=== PATIENT | female | born 1945 | race Caucasian/White ===

== ENCOUNTER 2019-03-21 18:48 | Inpatient (IN) ==
[2019-03-21] MEDS ORDERED: ZOFRAN IV ONE (19:52)
[2019-03-21] MEDS ORDERED: NS 1,000 ML IV ONE (19:52)
[2019-03-21 20:27] LABS: BASO# 0.01 X1000 (0.0-0.2); HEMATOCRIT 32.8 % (37.0-47.0); HEMOGLOBIN 10.4 g/dL (12.0-16.0); IMM GRAN% 0.4 % (0.0-0.5); LYMPH# 2.02 X1000 (1.2-3.4); LYMPH% 8.6 % (20.5-51.1); MCH 28.3 PG (27-31); MCHC 31.7 g/dL (33-37); MCV 89.1 FL (81-99); MONO# 1.46 X1000 (0.11-0.59); MONO% 6.2 % (1.7-9.3); MPV 9.4 FL (7.4-10.4); NEUT# 19.85 X1000 (1.4-6.5); NEUT% 84.8 % (42.2-75.2); PLT 344 X1000 (130-400); RBC 3.68 XMIL (4.2-5.4); RDW 12.8 % (11.5-14.5); WBC 23.44 X1000 (4.8-10.8)
[2019-03-21 20:36] LABS: AGAP 17; ALBUMIN 3.6 g/dL (3.5-5.0); ALKALINE PHOSPHATASE 82 U/L (32-104); BUN 37 mg/dL (8-22); CHLORIDE 98 mmol/L (98-107); COSMO 290; CREATININE 0.9 mg/dL (0.5-0.9); ESTIMATED GFR > 60; GLUCOSE 265 mg/dL (70-104); GOT 16 U/L (10-30); GPT 15 U/L (10-36); LIPASE 25 U/L (13-60); POTASSIUM 3.3 mmol/L (3.5-5.1); SODIUM 136 mmol/L (136-145); TCO2 22 mmol/L (25-35); TOTAL PROTEIN 6.8 g/dL (6.3-8.3)
[2019-03-21 20:45] LABS: BANDS 2 % (0-1); LYMPHS 10 % (21-51); MONO 1 % (1-9); SEGS 87 % (42-75)
[2019-03-21 20:46] LABS: HYPOCHROM 1+
[2019-03-21] MEDS ORDERED: LEVAQUIN 500 MG/D5W 500 MG/100 ML IVPB IV ONE (20:57)
--- NOTE | 2019-03-21 21:29 | Diag Imaging Result Doc PS360 ---
EXAM: CHEST-1 VIEW - 03/21/2019 HISTORY: leukocytosis TECHNIQUE: One view chest COMPARISON: 03/19/2019 FINDINGS: The projection is somewhat lordotic. Heart size appears upper normal. The lungs appear grossly clear of acute changes. There is no substantial pleural effusion or pneumothorax identified. IMPRESSION: No discrete evidence of acute disease. Electronically signed by Tayo Mayorga 03/21/2019 9:26 PM
--- NOTE | 2019-03-21 21:55 | Diag Imaging Result Doc PS360 ---
EXAM: CT ABD/PELVIS W/IV CONT ONLY - 03/21/2019 HISTORY: colitis, gi bleeding TECHNIQUE: CT abdomen/pelvis with intravenous contrast COMPARISON: None. FINDINGS: There is a large intermediate density subcapsular collection at the left kidney which is suspicious for subcapsular hematoma. At the mid to lower left kidney, this extends medially to the parapelvic region. There is some lower density material in this area, and it is is conceivable this could represent an unusual hemorrhagic cyst. There is no discrete enhancing mass identified. The left renal parenchyma otherwise enhances homogeneously. The right kidney enhances homogeneously except for a 2.1 cm cyst. There is no hydronephrosis. There is fatty infiltration of the liver. There is no evidence of focal liver lesion. There are no substantial abnormalities of the spleen, adrenal glands, or pancreas identified. There are no calcified gallstones or pericholecystic inflammation seen. There is no evidence of bowel obstruction. There is no substantial bowel wall thickening identified. There is no free air or abscess identified. IMPRESSION: Large subcapsular hematoma at left kidney. Possible underlying low-density lesion at mid to lower left kidney which conceivably could represent an unusual hemorrhagic cyst. There is extension of hemorrhage into the perinephric region. This report was discussed with Dr. Rutherford on 03/21/2019 at 9:50 PM and was readback. This exam was performed using automated exposure control, adjustment of mA or kV according to patient size, and/or use of iterative reconstruction technique. Electronically signed by Tayo Mayorga 03/21/2019 9:53 PM
[2019-03-21 22:09] LABS: INR 0.95; PROTIME 13.1 Seconds (11.0-16.0); PTT 22.5 Seconds (22.3-41.8)
[2019-03-21 22:19] LABS: URINE SOURCE CLEAN CATCH
[2019-03-21 22:22] LABS: BILIRUBIN URINE NEGATIVE (NEGATIVE); BLOOD URINE SMALL (NEGATIVE); COLOR YELLOW; GLUCOSE URINE 150 mg/dL (NEGATIVE); KETONE URINE NEGATIVE (NEGATIVE); LEUKOCYTES URINE NEGATIVE (NEGATIVE); NITRITE URINE NEGATIVE (NEGATIVE); PROTEIN URINE 70 mg/dL (NEGATIVE); TURBIDITY URINE CLEAR (CLEAR); UROBILINOGEN URINE NORMAL (NORMAL)
[2019-03-21 22:23] LABS: UR EPITHELIAL CELLS >10 /HPF (<10); URINE BACTERIA NEGATIVE /HPF; URINE RBC <10 /HPF (<10); URINE WBC <10 /HPF (<10)
--- NOTE | 2019-03-21 22:25 | PROVIDER DOCUMENTATION ---
This chart was entered by Paola Guadarrama Scribe, acting as scribe for Arnulfo Rutherford MD. HPI-Abdominal Pain/GI Problem - General Chief Complaint: Abdominal Pain Stated Complaint: ABD PAIN/VOMITING Time Seen by Provider: 03/21/19 19:20 Source: patient Allergies/Adverse Reactions: Patient Allergies Allergy/AdvReac Type Severity Reaction Status Date / Time Penicillins Allergy RASH Verified 01/12/15 11:12 Sulfa (Sulfonamide Allergy Unknown Verified 03/21/19 20:13 Antibiotics) venom-honey bee Allergy ANAPHYLAXIS Verified 01/12/15 11:12 [bee venom (honey bee)] Home Medications: Home Medication List Medication Instructions Recorded Confirmed Last Taken Type Alprazolam [Xanax] 0.25 mg TID 05/28/14 05/28/14 05/28/14 History Nebivolol HCl [Bystolic] 10 mg 05/28/14 05/28/14 05/27/14 History SIMVAstatin [Zocor] 40 mg 05/28/14 05/28/14 05/27/14 History Chlorthalidone 25 mg PO DAILY 03/21/19 03/21/19 Unknown History Irbesartan 300 mg PO DAILY 03/21/19 03/21/19 Unknown History - History of Present Illness-ABD Nature of Presenting Problems: pt is a 74 yr old female presenting with compliant of left abdominal pain, nausea, vomiting. pt reports blood streaked mucous in vomit. pt denies any constipation or diarrhea. pt reports dx as bronchitis 2 days ago. currently on azithromycin and prednisone. Abdominal Pain Onset Location: reports: LUQ, LLQ Pain Radiation: reports: flank Quality of Pain: reports: cramping, sharp Severity in ED: reports: moderate Onset/Duration: reports: this afternoon Timing: reports: still present Activities at Onset: reports: light activity Exposure to sick contacts?: No Modifying Factors: improves with: nothing Associated Symptoms: reports: diaphoresis, nausea, vomiting. denies: back/neck pain, chest pain, constipation, diarrhea, fever/chills, genitourinary problems, shortness of breath Last BM: this morning (x2) Dark Stools Present?: reports: none noticed Rectal Bleeding: reports: none # of Diarrhea Episodes: 0 Rectal Pain: reports: none # of Vomiting Episodes: 10 (10+) Emesis Description: reports: blood-streaked (brown blood streaked mucous in emesis) Bruising or Bleeding Gums?: No Similar Symptoms Previously?: No Recently seen or treated by another doctor?: Yes (seen in ER 2 days aog, dx as bronchitis) Review of Systems - Adult - REVIEW OF SYSTEMS - ADULT Constitutional: reports: chills, fatique. denies: fever Eyes: reports: no symptoms reported Ears, Nose, Mouth & Throat: reports: no symptoms reported Cardiovascular: denies: chest pain, palpitations, syncope Respiratory: reports: cough. denies: shortness of breath Gastrointestinal: reports: abdominal pain, hematemesis, nausea, vomiting. denies: constipation, diarrhea, rectal bleeding Genitourinary: reports: flank pain. denies: dysuria, frequency, hematuria Musculoskeletal: denies: back pain, neck pain Integumentary: reports: no symptoms reported Neurological: denies: dizziness/vertigo, headache/migraines Psychiatric: reports: anxiety Endocrine: reports: no symptoms reported Hematologic/Lymphatic: reports: no symptoms reported Allergic/Immunologic: reports: no symptoms reported All Other Systems: Reviewed and Negative Past History - Adult - PAST MEDICAL HISTORY-ADULT Review of Records: reports: Old Records Reviewed, Nursing Assessment Review, Medications Reviewed, Social history reviewed & non-contributory. Major Childhood Illnesses: reports: denies history Cardiovascular: reports: HTN, hyperlipidemia Respiratory: reports: denies history Gastrointestinal: reports: denies history Obstetrical/Gynecological: reports: denies history Genitourinary: reports: denies history Musculoskeletal: reports: denies history Neurological: reports: denies history Psychiatric: reports: anxiety Endocrine/Immune: reports: denies history Other Conditions: reports: other cancer - PRIOR SURGERIES/PROCEDURES Surgical/Procedure History: reports: BTL, other - IMMUNIZATION STATUS Childhood Immunizations: See Nurse Assessment Flu Vaccine: See Nurse Assessment - FAMILY HISTORY Family History: reviewed, not pertinent - SOCIAL HISTORY Smoking: denies Substance Use: denies Living Situation: family Physical Exam-General - PHYSICAL EXAM-ADULT Initial Vital Signs Reviewed: Yes - CONSTITUTIONAL General Appearance: alert, no apparent distress - EYES Eyes: PERRL/EOMI - HEAD, EARS, NOSE, MOUTH & THROAT HENMT: negative: moist mucous membranes (dry oral mucousa) - NECK Neck: non-tender, full range of motion, supple, normal inspection - RESPIRATORY Respiratory: chest non-tender, wheezing (bilateral wheezing), increased rate - CARDIOVASCULAR Cardiovascular: normal peripheral pulses, regular rate, rhythm, no edema - GASTROINTESTINAL (ABDOMEN) Abdominal Exam: normal bowel sounds, soft, distended, tenderness (LUQ, LLQ, left flank tenderness) - LYMPHATIC Lymphatic: no adenopathy - MUSCULOSKELETAL Back Exam: no CVA tenderness, no vertebral tenderness Extremity: normal range of motion, non-tender, normal inspection - SKIN Integumentary: normal color, normal turgor, warm/dry - NEUROLOGIC Neurologic: grossly normal, no motor/sensory deficits - PSYCHIATRIC Psych/Mental Status: oriented x 3, anxious Progress - PLAN OF CARE/RESULTS Progress/Plan/Lab Results: Vital Signs - 8 hr 03/21/19 19:01 Temperature 97.6 F Pulse Rate 70 Respiratory Rate 25 H Blood Pressure 123/69 O2 Sat by Pulse Oximetry 94 L Orders Category Date Time Status NPO Diet 03/21/19 19:14 Active CBC WITH DIFF [HEME] Stat Lab 03/21/19 19:14 Uncollected COMPREHENSIVE METABOLIC PANEL [CHEM] Stat Lab 03/21/19 19:14 Uncollected LIPASE [CHEM] Stat Lab 03/21/19 19:14 Uncollected UA [URINALYSIS W/POSS RFLX CULT] [URINALYSIS] Stat Lab 03/21/19 19:14 Uncollected Abd Pain/OB <20 weeks Stat Oth 03/21/19 19:14 Ordered Result Diagrams: 03/21/19 20:06 03/21/19 20:06 - XRAY 1 XRAY Study: Chest Impression: Normal (Signed EXAM: CHEST-1 VIEW - 03/21/2019 HISTORY: leukocytosis TECHNIQUE: One view chest COMPARISON: 03/19/2019 FINDINGS: The projection is somewhat lordotic. Heart size appears upper normal. The lungs appear grossly clear of acute changes. There is no substantial pleural effusion or pneumothorax identified. IMPRESSION: No discrete evidence of acute disease. Electronically signed by Tayo Mayorga 03/21/2019 9:26 PM 03/[id number]/[id number] Interpreting Physician: Tayo Mayorga MD Dictated Date/Time: 03/21/192123 cc: Arnulfo Rutherford MD; Slava Lindsey MD) - CT/MRI 1 CT Study: Abdomen, Pelvis Impression: Abnormal (Signed EXAM: CT ABD/PELVIS W/IV CONT ONLY - 2018 HISTORY: colitis, gi bleeding TECHNIQUE: CT abdomen/pelvis with intravenous contrast COMPARISON: None. FINDINGS: There is a large intermediate density subcapsular collection at the left kidney which is suspicious for subcapsular hematoma. At the mid to lower left kidney, this extends medially to the parapelvic region. There is some lower density material in this area, and it is is conceivable this could represent an unusual hemorrhagic cyst. There is no discrete enhancing mass identified. The left renal parenchyma otherwise enhances homogeneously. The right kidney enhances homogen eously except for a 2.1 cm cyst. There is no hydronephrosis. There is fatty infiltration of the liver. There is no evidence of focal liver lesion. There are no substantial abnormalities of the spleen, adrenal glands, or pancreas identified. There are no calcified gallstones or pericholecystic inflammation seen. There is no evidence of bowel obstruction. There is no substantial bowel wall thickening identified. There is no free air or abscess identified. IMPRESSION: Large subcapsular hematoma at left kidney. Possible underlying low- density lesion at mid to lower left kidney which conceivably could represent an unusual hemorrhagic cyst. There is extension of hemorrhage into the perinephric region. This report was discussed with Dr. Rutherford on 03/21/2019 at 9:50 PM and was readback. This exam was performed using automated exposure control, adjustment of mA or kV according to patient size, and/or use of iterative reconstruction technique. Electronically signed by Tayo Mayorga 03/21/2019 9:53 PM 03/21/[id number] Interpreting Physician: Tayo Mayorga MD Dictated Date/Time: 03/21/192133 cc: Arnulfo Rutherford MD; Slava Lindsey MD), Discussed w/Radiology, See EMR Report - CONSULTS/PCP/HOSPITALIST Notification #1 *Consult/PCP/Hospitalist*: Dr Bolanos Time Discussed: :19 Reason/Comments: advised hospitalist to admit and he would consult. #2 Consult: Dr Jain Time Discussed: 22:22 Reason/Comments: will admit to [facility] Consult Disposition: Admit Departure - Departure Date of Disposition Decision: 03/21/19 Time of Disposition Decision: 22:22 DIAGNOSIS: GI bleeding, Hemorrhage of cyst of ute kidney, Abdominal pain of unknown etiology, Sepsis Disposition: ADMITTED INPATIENT 09 Certified Medical Emergency: Emergent Condition: Serious Referrals and Follow-Ups: Slava Lindsey MD [Primary Care Provider] - - Critical Care Note This patient required my direct & personal management of CC.: No Attestation - Physician/ JONAS Attestation Patient care was provided by Advanced Practice Provider:: No The physician spent face to face time with patient:: Yes Advanced Practice Provider documentation review:: Supervising physician onsite and consulted in the evaluation and care of this patient. The physician did have a face to face encounter with the patient. Sepsis: Tissue Perfusion Assmt - Physical Exam Assessment Date: 03/21/19 Time Assessment Initialized: 22:26 Vital Signs: Last Vital Signs Temp 97.6 F 03/21/19 19:01 Pulse 64 03/21/19 21:45 Resp 22 03/21/19 21:45 BP 174/103 03/21/19 21:45 Pulse Ox 93 L 03/21/19 21:45 Height 5 ft 5 in Weight 907.185 g Lung Sounds:: lungs clear Heart Sounds:: Regular Capillary Refill Time: Less Than 2 Seconds Peripheral Pulse Evaluation:: radial (R): 4+, radial (L): 4+, dorsalis-pedis (R): 4+, dorsalis-pedis (L): 4+ Skin Exam:: flushed - Impression Impression:: Tissue Perfusion Adequate - Plan Plan:: See Orders This chart was documented by the indicated scribe, (Paola Guadarrama, [employer]) and accurately reflects the services I performed and decisions made by me, Ally duncan,Arnulfo Mcnair MD, as attested by the provider's signature.
[2019-03-21] MEDS ORDERED: LABETALOL IV ONE (22:28)
[2019-03-21 22:36] LABS: SP GRAVITY URINE 1.015
[2019-03-21] MEDS ORDERED: ZOFRAN IV PRN (23:07)
[2019-03-22] MEDS ORDERED: NS 1,000 ML IV SCH (00:30)
[2019-03-22] MEDS ORDERED: NS 1,000 ML IV ONE (00:31)
[2019-03-22] MEDS: APRESOLINE IV PRN (00:42)
[2019-03-22] MEDS: DILAUDID IV PRN ×5 (00:43→23:25)
--- NOTE | 2019-03-22 03:47 | EKG Report ---
Test Performed on : 03/22/2019 00:39:39 AM Test Reason : surgical clearance Blood Pressure : / mmHG Vent. Rate : 072 BPM Atrial Rate : 072 BPM P-R Int : 140 ms QRS Dur : 074 ms QT Int : 408 ms P-R-T Axes : 009 -08 035 degrees QTc Int : 446 ms Normal sinus rhythm. T wave abnormality, consider anterior ischemia Abnormal ECG When compared with ECG of 19-NOV-2011 15:31, No significant change was found Confirmed by Luis Alfredo RON, Dimitri ([id number]) on 03/22/2019 8:39:08 AM
[2019-03-22] MEDS ORDERED: PRILOSEC PO SCH (07:00)
[2019-03-22] MEDS ORDERED: KLOR-CON PO ONE (07:10)
[2019-03-22] MEDS: NS 1,000 ML IV SCH ×5 (07:42→23:26)
[2019-03-22 08:14] LABS: HEMATOCRIT 29.9 % (37.0-47.0); HEMOGLOBIN 9.7 g/dL (12.0-16.0)
[2019-03-22] MEDS: PROTONIX IV SCH (08:40)
[2019-03-22] MEDS: XANAX PO SCH ×4 (08:41→20:48)
[2019-03-22] MEDS: BYSTOLIC PO SCH (08:42)
[2019-03-22] MEDS: HYGROTON PO SCH (08:46)
[2019-03-22] MEDS: AVAPRO PO SCH ×3 (08:46→21:04)
[2019-03-22] MEDS: ZOCOR PO SCH ×2 (08:47→20:55)
--- NOTE | 2019-03-22 11:57 | HISTORY AND PHYSICAL ---
CHIEF COMPLAINT: Nausea with vomiting for about 2 days. HISTORY OF PRESENT ILLNESS: Ms. Ling Ortega is a 72-year-old female who has a history of hypertension as well as hyperlipidemia. The patient did have a recent upper respiratory infection, and she was prescribed antibiotics, and following, that she developed nausea with vomiting. The patient also indicates that she has vomited some dark, altered blood. She also describes having pain in her left flank region. She presented to the ER. She did have a CT scan of the abdomen and pelvis, which showed evidence of a large subcapsular hematoma of the left kidney. There is extension of hemorrhage into the perinephric region. The patient initially presented to [facility], but has now been transferred to [facility] for further management. PAST MEDICAL HISTORY: Hypertension, hyperlipidemia, recurrent upper respiratory infection, history of breast cancer. PAST SURGICAL HISTORY: She has had lumpectomy, bilateral tubal ligation, as well as oral surgery, and also cataract surgery. SOCIAL HISTORY: No history of cigarette smoking. No alcohol or drug use. FAMILY HISTORY: Positive for diabetes as well as cancer. ALLERGIES: She is allergic to penicillin and sulfa. MEDICATIONS: Include the following: Alprazolam 0.25 mg p.o. 3 times a day, Bystolic 10 mg p.o. daily, simvastatin 40 mg p.o. daily, chlorthalidone 25 mg p.o. once a day, irbesartan 300 mg p.o. daily. REVIEW OF SYSTEMS: Constitutional: Has fever. GARBAGE STOKER: No headaches. Eyes: No blurred vision. Cardiovascular: No chest pain. Respiratory: Has cough. Genitourinary: No dysuria. Musculoskeletal: Has joint pains. Hematology: Has hematemesis as in the history of present illness. Endocrine: No thyroid disease or diabetes. Psychiatry: Has anxiety with depression. PHYSICAL EXAMINATION: VITAL SIGNS: Temperature 98.9 degrees, pulse 85, respirations 24, blood pressure 138/82, oxygen saturation is 94%. HEENT: Atraumatic, normocephalic. She is anicteric. Extraocular movements intact. No oral lesions. NECK: No lymphadenopathy or thyromegaly. CARDIOVASCULAR: S1, S2. RESPIRATORY: Has evidence of good air entry bilaterally. ABDOMEN: Soft, nontender. No masses felt. EXTREMITIES: No evidence of edema. CENTRAL NERVOUS SYSTEM: No obvious focal deficits. IMAGING AND LABORATORY DATA: WBCs 23.44, hematocrit 32.8, with a platelet count of 344,000. INR is 0.95. Sodium is 136, potassium 3.3, chloride is 98, bicarb is 22, BUN is 37, creatinine 0.9. UA shows less than 10 WBCs per high-power field. CT scan of the abdomen and pelvis shows evidence of a large subcapsular hematoma at the left kidney, possible underlying low- density lesion at the [id number] left kidney, which conceivably could represent an unusual hemorrhagic cyst. There is extension of hemorrhage into the perinephric region. ASSESSMENT AND PLAN: 1. Upper gastrointestinal bleed. Will place the patient nothing by mouth. Maintain the patient on intravenous fluids. Start proton pump inhibitor. Follow up on hemoglobin and hematocrit. Transfuse packed red blood cells as needed. Consult with Gastroenterology. 2. Large subcapsular hematoma of the left kidney. Consult with Urology. Follow up on hemoglobin and hematocrit. Transfuse packed red blood cells as needed. 3. Sepsis. Maintain the patient on antibiotics, intravenous fluids. Follow up on cultures. 4. Leukocytosis, likely secondary to infective process. Maintain the patient on antibiotics. Follow up on white count. 5. Hypertension. Optimize blood pressure control. 6. Hypokalemia. Replace potassium. Check magnesium level. 7. Deep vein thrombosis prophylaxis. Sequential compression devices. 8. Gastrointestinal prophylaxis. Proton pump inhibitor. cc: Nilton Jain MD MTD
[2019-03-22 12:58] LABS: HEMATOCRIT 28.6 % (37.0-47.0); MCH 28.5 PG (27-31); MCHC 31.5 g/dL (33-37); MCV 90.5 FL (81-99); MPV 9.1 FL (7.4-10.4); RBC 3.16 XMIL (4.2-5.4); WBC 14.62 X1000 (4.8-10.8)
--- NOTE | 2019-03-22 14:15 | PROGRESS NOTE ---
DATE: 03/22/2019 SUBJECTIVE: Today Ms. Ortega refers to be doing slightly better. Still has some pain in the left side. Ms. Ortega got admitted yesterday because of excruciating left-sided abdominal pain associated with multiple episodes of vomiting, after which the vomiting became bloody. Presented to the emergency department, was evaluated including a CT scan of the abdomen, which did show a large subcapsular hematoma on the left with some extension of the hemorrhage into the perinephric region. She has been evaluated this morning by Urology. OBJECTIVE: Vital signs: Blood pressure is 140/92, pulse of 90, respirations 24 and temperature is 98.9 degrees. General exam: Ms. Ortega is a 74-year-old elderly female. She is in bed in no distress. HEENT: Mucosa is pink and moist. Anicteric. Acyanotic. Neck: Supple. Chest: Good air entry bilateral. Did not hear any crepitations. No rhonchi. Cardiovascular: Regular rate and rhythm. GI/Abdomen: Soft. Some tenderness to the left flank with some erythematous changes on the skin. Central nervous system: Patient was awake, alert, and oriented. LABS: Repeat hemoglobin this morning is 9.7. Chemistry has also been reviewed from yesterday. The patient's lactate is now 3.1. So far, blood cultures are still pending. ASSESSMENT: 1. Spontaneous large subcapsular hematoma at the left kidney with extension to the perinephric region of unclear etiology. The patient has been evaluated by Urology. We will continue to follow up with further recommendations for now. We are going to continue with serial hemoglobin and hematocrit, adequate hydration. Urine cultures have been done. Patient is on intravenous antibiotics. 2. Sepsis picture. Patient has leukocytosis. Plasma lactate was also elevated on admission. There is about 2% of bands on the peripheral smear. Blood cultures are pending. Urine culture has been done. She is on antimicrobial coverage. We will wait on the results of the cultures to make any changes to the antibiotic. 3. Hypertension. 4. Recently treated for a respiratory tract infection. 5. Remote history of breast cancer. PLAN: So, today Ms. Ortega is stable hemodynamically. Vitals are okay. She has been evaluated by Urology. The plan is to continue serial hemoglobin and hematocrit, adequate hydration and get a repeat CT scan every /Wednesday, and go from there. If she happens to be dropping her hematocrit on the subsequent readings, then they might have to go in and do something differently. For now, it is going to be a conservative management. cc: MD Nilton Payne MD
--- NOTE | 2019-03-22 14:23 | CONSULTATION ---
DATE OF CONSULTATION: 03/22/2019 CHIEF COMPLAINT: Left retroperitoneal hematoma. HISTORY OF PRESENT ILLNESS: Ms. Ortega is a 74-year-old with history of hypertension, anxiety, breast cancer, hyperlipidemia, nephrolithiasis, who presents in consultation regarding left flank pain. The patient states that she was driving to the gas station and developed significant left flank pain. She was able to get gas and felt better, and then ultimately she had another episode of pain when she got home. She never felt like this before, and was brought to the emergency room. She was complaining of nausea and vomiting, as well as left-sided flank and abdominal pain. She said when she vomited, she noticed some blood present. She was recently seen in the emergency room and treated with steroids and azithromycin for possible bronchitis. The patient states she had a possible episode of flank pain on the left side approximately a week ago. She thought this may be related to passing a kidney stone. She has passed several stones in the past. However, she never felt a stone that passed. She currently denies any nausea or vomiting. The patient had a CT scan in the emergency room, which showed a left retroperitoneal hematoma with concern for possible masslike area within the interpolar region of the kidney. She remains afebrile. Her blood work showed a stable creatinine at 0.9, with a white blood cell count of 23. She had a lactate of 5.7 on admission, which has down trended to 3.1 today. The patient was admitted to the ICU for observation and serial hematocrits. ALLERGIES: 1. Penicillin. 2. Sulfamethoxazole. 3. Bee venom. HOME MEDICATIONS: 1. Xanax. 2. Bystolic. 3. Zocor. 4. Irbesartan. 5. Chlorthalidone. PAST MEDICAL HISTORY: 1. Anxiety. 2. Hypertension. 3. Hyperlipidemia. 4. Breast cancer. 5. Nephrolithiasis. PAST SURGICAL HISTORY: 1. Lumpectomy approximately 11 years ago. 2. Tubal ligation. FAMILY HISTORY: Denies family history of malignancy. SOCIAL HISTORY: Denies tobacco, alcohol, or illicit drug use. REVIEW OF SYSTEMS: A 14-point review of systems was performed with all pertinent positives and negatives in the HPI. PHYSICAL EXAMINATION: Vital Signs: Temperature 98.9 degrees, heart rate 88, blood pressure 134/73, oxygen saturation 97% on room air. General: No acute distress. Resting comfortably in bed. Alert and oriented x3. HEENT: Normocephalic, atraumatic. Pupils equal, round, reactive to light. Neck: Trachea midline with no palpable masses. Respiratory: Good respiratory effort without audible wheezing or rales. Cardiovascular: Regular rate and rhythm. Abdomen: Soft. Slight tenderness to palpation of the left abdomen and left flank. : No suprapubic tenderness. Urethral catheter in place, draining clear-yellow urine. Evidence of mild left CVA tenderness. No evidence of right CVA tenderness. Musculoskeletal: Moving all extremities. Neurologic: Gross motor and sensory intact. Skin: No skin lesions or rashes. No flank bruising present. LABORATORY DATA: White blood cell count 23.4, hemoglobin 10.4, hematocrit 32.8, platelets 344,000. PT 13.1, INR 0.95, PTT 22.5. Sodium 136, potassium 3.3, chloride 98, bicarb 22, BUN 37, creatinine 0.9, glucose 265. Lactate 3.1. Urinalysis shows a small amount of blood with 70 of protein and 150 of glucose. IMAGING: CT abdomen and pelvis images reviewed, which showed a large hematoma of the left kidney with what appears to be a lesion present in the [id number] pole of the kidney. Uncertain if this is a cystic structure versus solid mass. A small cyst is seen in the right kidney. No obvious nephrolithiasis is visualized. No obvious area of extravasation from the left kidney. ASSESSMENT AND PLAN: Ms. Ortega is a 74-year-old who presents for left flank pain. The patient had a CT scan in the emergency room, which showed a subcapsular hematoma, which was moderate-to- large in size. It seemed to create a compression effect on the kidney, and likely leading to her pain. The patient had a lactate elevated at 5.7, which has down trended to 3.1 today. White blood cell count was elevated at 23.4 on admission, with a hematocrit of 32.8. Uncertain if her white blood cell count is both from the inflammatory nature of her bleed, as well as being on prednisone. She took this for several days prior to presenting. The patient is a nonsmoker. Concerns arise that the patient may have a mass on the kidney, which led to her spontaneous bleed. Would observe in the intensive care unit with serial hematocrits and hemoglobins at this time. The patient will need close monitoring for any hemodynamic changes. I discussed the case with Dr. Jain last night. If the patient becomes unstable, may have to consider embolization of the kidney if continues to have serial bleeds, versus surgical exploration. Discussed with the patient that if she did have surgical intervention, the patient would likely have her kidney removed due to bleeding and concern for possible mass. I told her that we likely would repeat a CT scan in 48 hours to ensure stability of the area. If it continues to worsen, may have to consider intervention. If the area remains stable and hematocrit remains stable, would plan for outpatient followup with repeat imaging in several months, and likely surgical intervention if a mass is visualized. If the patient continues to have sporadic bleeds, may have to consider earlier intervention. Will continue to monitor from a urologic standpoint. Please call with questions or concerns. cc: MD Nilton Gonzales MD [facility]
[2019-03-22] MEDS: LEVAQUIN 500 MG/D5W 500 MG/100 ML IVPB IV SCH (17:49)
[2019-03-22 20:20] LABS: HEMATOCRIT 24.7 % (37.0-47.0)
--- NOTE | 2019-03-22 20:45 | GASTROENTEROLOGY CONSULTATION ---
DATE: 03/22/2019 REASON FOR CONSULTATION: Nausea, vomiting, hematemesis, anemia. HISTORY OF PRESENT ILLNESS: This is a 74-year-old female who reports onset of symptoms yesterday. Patient owns a hair salon and when the weather became bad, she decided to go to her salon and get her client book in case she had to cancel appointments tomorrow. Patient was out of gas, so she was on her way to get some gas when she had an episode of where she felt like she may pass out. She made it to the gas station and to her salon to get her client book and made it back home. Her symptoms had seemed to improve, but after she got home she felt nauseated and felt like she may vomit. She ended up taking one of her Xanax that she takes at night, but she continued to have episodes of nausea. She reported diaphoresis and hematemesis. She had initial vomiting of about 5 times before she noted what she thought was brownish maroon emesis. She probably vomited about 12 times, per patient report. She came into the hospital for further evaluation, undergoing workup that showed a CT scan that showed large subcapsular hematoma at the left kidney, possible underlying low-density lesion at the mid to lower left kidney, which could represent an unusual hemorrhagic cyst. There is extension of hemorrhage into the perinephric region. Patient has been seen by Urology. As far as GI is concerned, the patient does report a history of gastric ulcers in the past, probably 20 years ago. She has denied NSAID use except for an occasional aspirin. She maybe took one 2 weeks ago. She takes an occasional aspirin for aches and pains, but not frequently. She denies alcohol use. She has never had an EGD or colonoscopy. She does not currently follow with a manager intranet. She did report having a recent upper respiratory infection/bronchitis and was on antibiotics and prednisone. PAST MEDICAL HISTORY: 1. Hypertension. 2. Hyperlipidemia. 3. Recurrent respiratory infections. 4. History of breast cancer. PAST SURGICAL HISTORY: 1. Lumpectomy. 2. Bilateral tubal ligation. 3. Oral surgery. 4. Cataract surgery. ALLERGIES: 1. Penicillin, causing a rash. 2. Sulfonamide, unknown reaction. 3. Bee venom, anaphylaxis. HOME MEDICATIONS: 1. Xanax 0.25 mg 3 times a day. 2. Chlorthalidone 25 mg daily. 3. Irbesartan 300 mg daily. 4. Bystolic 10 mg daily. 5. Zocor 40 mg daily. SOCIAL HISTORY: She is single. She has 1 child. She owns a hair salon. Denies tobacco or alcohol use. REVIEW OF SYSTEMS: Per History of Present Illness. PHYSICAL EXAMINATION: Vital Signs: Temperature 98.8 degrees, pulse 83, respirations 23, blood pressure 148/85. General: Patient is awake and alert, in no acute distress. HEENT: Normocephalic, atraumatic. Pupils equal, round, reactive to light. Sclerae nonicteric. Cardiovascular: Regular rate and rhythm. Respiratory: Lung sounds essentially clear. Abdomen: There is some tenderness to the left abdomen. Otherwise soft with positive bowel sounds. Neurological: Cranial nerves 2 through 12 grossly intact. Patient is awake, alert, oriented to person, place, and time. DIAGNOSTIC RESULTS: CT scan of the abdomen showed a large subcapsular hematoma at the left kidney with extension to the perinephric region. The patient has been seen by Urology. They will be following. Nausea, vomiting, with episodes of hematemesis, possibly related to Katelyn-Reza tear from her numerous episodes of vomiting. She is mildly anemic. Patient had also reported some problems with dysphagia to meats and breads where she feels like they get hung. She was wondering if she may have a hiatal hernia. She denies having an esophagogastroduodenoscopy or colonoscopy in the past. Due to her hematemesis, vomiting, and reports of dysphagia, we will go ahead and proceed with esophagogastroduodenoscopy. Plan will be to proceed with esophagogastroduodenoscopy on . Will hold n.p.o. after midnight. Will allow clear liquid diet today. Recommend continuing to follow with Urology. Further plans will be made as needed. I have discussed this case with Dr. Dixon. Dictated by JARED Zayas for Tha Dixon MD cc: JARED Magaña MD
[2019-03-23] MEDS: DILAUDID IV PRN ×3 (05:20→18:42)
[2019-03-23] MEDS: NS 1,000 ML IV SCH ×3 (06:20→22:53)
[2019-03-23] MEDS ORDERED: ROBINUL ONE (08:21)
[2019-03-23] MEDS ORDERED: VERSED ONE (08:22)
[2019-03-23] MEDS ORDERED: FENTANYL ONE (08:24)
[2019-03-23] MEDS ORDERED: DIPRIVAN 1% ONE (08:26)
[2019-03-23] MEDS ORDERED: XYLOCAINE-MPF 2% ONE (08:26)
[2019-03-23 08:47] LABS: EOS# 0.03 X1000 (0.0-0.7); EOS% 0.3 % (0.0-10.0); HEMATOCRIT 25.2 % (37.0-47.0); HEMOGLOBIN 7.9 g/dL (12.0-16.0); IMM GRAN# 0.08 X1000 (0.0-0.04); IMM GRAN% 0.7 % (0.0-0.5); LYMPH# 1.69 X1000 (1.2-3.4); LYMPH% 14.1 % (20.5-51.1); MCH 28.5 PG (27-31); MCHC 31.3 g/dL (33-37); MONO# 0.97 X1000 (0.11-0.59); MONO% 8.1 % (1.7-9.3); MPV 9.3 FL (7.4-10.4); NEUT# 9.21 X1000 (1.4-6.5); NEUT% 76.8 % (42.2-75.2); PLT 221 X1000 (130-400); RBC 2.77 XMIL (4.2-5.4); RDW 12.8 % (11.5-14.5); WBC 11.98 X1000 (4.8-10.8)
[2019-03-23 08:54] LABS: AGAP 10; BUN 23 mg/dL (8-22); CALCIUM 8.5 mg/dL (8.8-10.2); CHLORIDE 97 mmol/L (98-107); COSMO 273; CREATININE 0.8 mg/dL (0.5-0.9); ESTIMATED GFR > 60; GLUCOSE 147 mg/dL (70-104); PHOSPHORUS 2.6 mg/dL (2.7-4.5); POTASSIUM 3.5 mmol/L (3.5-5.1); SODIUM 133 mmol/L (136-145); TCO2 26 mmol/L (25-35)
--- NOTE | 2019-03-23 08:55 | ENDOSCOPY OPERATIVE NOTE ---
[facility] ENDOSCOPY OPERATIVE NOTE , EGD PROCEDURE REPORT PATIENT: Ling Ortega ADMISSION DATE: 03/23/2019 MR#: [id number] : 1945 PROCEDURE DATE: 03/23/2019 SURGEON: Tha Dixon MD STATUS: inpatient EXECUTIVE TALENT ACQUISITION CONSULTANT: Ailyn Santamaria and Raulito Das PREOPERATIVE DIAGNOSIS: The patient is a 74 yr old female here for an EGD due to acute post hemorrha gic anemia and coffee-ground emesis. PROCEDURE PERFORMED: EGD, diagnostic MEDICATIONS: Per Anesthesia TOPICAL ANESTHETIC: none CONSENT: The patient understands the risks and benefits of the procedure and understands that these r isks include, but are not limited to: sedation, allergic reaction, infection, perforation and/or bleeding. Alternative means of evaluation and treatment include, among others: physical exam, x-rays, and/or surgical intervention. The patient elects to proceed with this endoscopic procedure. HISORY AND PHYSICAL: 03/23/2019 DESCRIPTION OF PROCEDURE: During intra-op preparation period all mechanical and medical equipment was checked for proper function. Hand hygiene and appropriate measures for infection prevention was taken. After the risks, benefits and alternatives of the procedure were thoroughly explained, Informed consent was verified, confirmed and timeout was successfully executed by the treatment team. The patient was anesthetized with topical anesthesia and the Pentax EG-[id number] endoscope was introduced through the mouth and advanced to the second portion of the duodenu m. Retroflexion was performed in the stomach and revealed no abnormalities. The gastroscope was then slowly withdraw n and removed. ESOPHAGUS: Mild reflux esophagitis was found in the distal esophagus and at the gastroesophageal junc tion. The esophagus was otherwise normal. STOMACH: The mucosa of the stomach appeared normal. DUODENUM: The duodenal mucosa showed no abnormalities. SPECIMENS REMOVED: No ADVERSE EVENTS: There were no complications. POSTOPERATIVE DIAGNOSIS: 1. Reflux esophagitis in the distal esophagus and at the gastroesophage al junction 2. The esophagus was otherwise normal 3. The mucosa of the stomach appeared normal 4. The duodenal mucosa showed no abnormalities RECOMMENDATIONS: 1. Resume pre-procedure medications 2. Resume current medications 3. Resume previous diet 4. Return to floor when standard parameters are met REPEAT EXAM: Tha Dixon MD eSigned: Tha Dixon MD 03/23/2019 8:54 AM cc: PATIENT NAME: Ling Ortega MR#: [id number]
[2019-03-23 10:39] LABS: INR 1.11; PROTIME 14.4 Seconds (11.0-16.0)
--- NOTE | 2019-03-23 10:39 | PROGRESS NOTE ---
DATE: 03/23/2019 SUBJECTIVE: No acute events overnight. The patient's pain seems to be better controlled today. She denies any nausea or vomiting. She remains afebrile with stable vital signs. The patient has no evidence of tachycardia, and blood pressures are in the 120s to 140s. She says she has been able to move around in the bed with less discomfort. The patient has been having serial hematocrits, with most recent lab at 25.2; it was 24.7 last night, which has down trended from 32.8 on presentation. The patient is scheduled to have an EGD performed later today by Dr. Dixon. OBJECTIVE: Vital Signs: Temperature 98.3 degrees, heart rate 83, blood pressure 123/65, oxygen saturation 97% on nasal cannula. General: No acute distress. Resting comfortably in bed. Alert and oriented x3. Abdomen: Soft, nontender, nondistended. No palpable masses. : No suprapubic tenderness. No CVA tenderness. Urethral catheter in place, draining clear-yellow urine. Musculoskeletal: Moving all extremities. SKIN: No flank bruising. LABORATORY DATA: White blood cell count 11.98, hemoglobin 7.9, hematocrit 25.2, platelets 221,000. Sodium 133, potassium 3.5, chloride 97, bicarb 26, BUN 23, creatinine 0.8, glucose 147. Albumin 3. Lactate yesterday was 2.0. ASSESSMENT AND PLAN: Ms. Ortega is a 74-year-old with history of anxiety, hypertension, hyperlipidemia, breast cancer, and nephrolithiasis, who presents in consultation regarding left retroperitoneal hematoma. The patient had evidence of pain, and had a CT scan, which showed blood around the kidney itself. The patient seems to be better controlled with her pain today. Her hematocrit is relatively stable at 25.2 from 24.7 yesterday. The patient is scheduled to have esophagogastroduodenoscopy today, as well as placement of peripherally-inserted central catheter line due to inability to get good venous access. I discussed with her at length today that she may need a blood transfusion as her blood counts have decreased from admission. I think this is probably related to initial bleed rather than sequential bleeding. I talked with her regarding the role of obtaining a CT scan to assess for stability of the hematoma. We plan to do that later today, approximately 36 to [address] her initial CT scan. If she continues with stability of the hematoma and no active bleeding, would continue with conservative management. If she has downtrending creatinine that does not respond to transfusions, would have to consider embolization versus surgery. The patient is very hesitant to proceed with either one, which at this time, I would agree with as it seems that her vital signs are stable. If her clinical condition changes, would changeover operator. Will continue with bedrest, serial hematocrits, and transfuse as necessary. Will continue to monitor. Please call with questions or concerns. cc: Husam Bolanos MD [facility]
[2019-03-23] MEDS: BYSTOLIC PO SCH (10:43)
[2019-03-23] MEDS: PROTONIX IV SCH (10:44)
[2019-03-23] MEDS: XANAX PO SCH ×3 (10:44→18:00)
[2019-03-23] MEDS: HYGROTON PO SCH (10:48)
[2019-03-23] MEDS ORDERED: NS 250 ML ONE (11:09)
[2019-03-23] MEDS ORDERED: NS 500 ML IV ONE (13:57)
--- NOTE | 2019-03-23 14:50 | Diag Imaging Result Doc PS360 ---
EXAM: CT ABDOMEN W/WO CONTRAST INDICATION: History of left retroperitoneal hematoma TECHNIQUE: This exam was performed using automated exposure control, adjustment of mA or kV according to patient size, and/or use of iterative reconstruction technique. COMPARISON: 03/21/2019 FINDINGS: There has been development of small bilateral pleural effusions, larger on the left. There is adjacent bibasilar atelectasis. The large left renal subcapsular hematoma seen on the previous study is again identified. It is approximately stable in size. As stated on the previous study, there is a possible underlying mass that is being partially obscured by the subcapsular hematoma associated with the inferior left kidney. However, this is more likely a parenchymal component of the hematoma and there is no obvious enhancement identified when comparing the precontrast to the postcontrast images. It is essentially stable. The subcapsular hematoma is causing mass effect on the adjacent renal parenchyma. No arterial contrast extravasation is appreciated. There is no hydronephrosis. The remainder of the visualized solid viscera of the abdomen and the abdominal segments of the GI tract are grossly stable. IMPRESSION: 1.Essentially stable large left subcapsular hematoma associated with the left kidney with a likely parenchymal component. Please see the above discussion. 2.Interval development of small bilateral pleural effusions. Electronically signed by Martin Mackenzie 03/23/2019 2:47 PM
[2019-03-23 14:58] LABS: HEMATOCRIT 24.2 % (37.0-47.0); HEMOGLOBIN 7.7 g/dL (12.0-16.0)
--- NOTE | 2019-03-23 17:12 | PROGRESS NOTE ---
DATE: 03/23/2019 SUBJECTIVE: Today, Ms. Ortega refers to be doing well. She underwent EGD early on today. She was taking her lunch at the time of this encounter. OBJECTIVE: Vital signs: Her blood pressure 152/80, pulse of 90, respiration is 25, temperature 97.8 degrees. General: Ms. Ortega is a 74-year-old elderly female. She is in bed. No distress. Mucosa is pink and moist. Anicteric. Acyanotic. Neck: Supple. Chest: Good air entry bilaterally. There were no crepitations. No rhonchi. Cardiovascular: Regular rate and rhythm. No murmurs, no rubs, no gallops. Gastrointestinal: Abdomen was soft, minimally tender in the left flank with some erythematous changes. Central Nervous System: The patient is awake, alert, and oriented. LABORATORY DATA: WBC is 11.98. Hemoglobin is down to 7.9, platelet count is normal. Chemistry is also reviewed and is completely within normal range. The patient's plasma lactate has normalized. The EGD report shows that there was mild reflux esophagitis found in the distal esophagus and the gastrojejunal junction. The stomach mucosa appeared normal. Duodenal mucosa appeared normal. ASSESSMENT: 1. Spontaneous large subcapsular hematoma of the left kidney with extension to the perinephric region of unclear etiology. Urology is on board. 2. Upper gastrointestinal bleed. Patient is status post EGD. Findings include distal esophagus reflux esophagitis. 3. Hypertension controlled. 4. Recently treated for respiratory tract infection noted. 5. Remote history of breast cancer. 6. Reflux esophagitis. The patient will continue to be on proton pump inhibitors. 7. Anemia of acute blood loss. Patient's hemoglobin has dropped to 7.9. We are going to group and crossmatch and give her 2 units. There is also an order for a CT scan of the abdomen, now by Urology to see if the left renal subcapsular hematoma is getting any bigger. cc: Tung Fischer MD
[2019-03-23] MEDS: LEVAQUIN 500 MG/D5W 500 MG/100 ML IVPB IV SCH (18:28)
[2019-03-23] MEDS: AVAPRO PO SCH (21:32)
[2019-03-23] MEDS: ZOCOR PO SCH (21:32)
[2019-03-23] MEDS: APRESOLINE IV PRN (23:01)
[2019-03-24] MEDS: DILAUDID IV PRN (01:43)
[2019-03-24 06:43] LABS: AGAP 12; ALBUMIN 2.8 g/dL (3.5-5.0); BUN 17 mg/dL (8-22); CALCIUM 8.4 mg/dL (8.8-10.2); CHLORIDE 99 mmol/L (98-107); COSMO 276; CREATININE 0.9 mg/dL (0.5-0.9); ESTIMATED GFR > 60; GLUCOSE 147 mg/dL (70-104); PHOSPHORUS 2.6 mg/dL (2.7-4.5); POTASSIUM 3.5 mmol/L (3.5-5.1); SODIUM 136 mmol/L (136-145); TCO2 25 mmol/L (25-35)
[2019-03-24 07:19] LABS: BASO# 0.01 X1000 (0.0-0.2); BASO% 0.1 % (0.0-0.8); EOS# 0.04 X1000 (0.0-0.7); EOS% 0.2 % (0.0-10.0); HEMATOCRIT 30.8 % (37.0-47.0); HEMOGLOBIN 10.3 g/dL (12.0-16.0); IMM GRAN# 0.12 X1000 (0.0-0.04); IMM GRAN% 0.7 % (0.0-0.5); LYMPH# 1.62 X1000 (1.2-3.4); MCH 28.9 PG (27-31); MCHC 33.4 g/dL (33-37); MCV 86.3 FL (81-99); MONO# 1.14 X1000 (0.11-0.59); MPV 9.1 FL (7.4-10.4); NEUT# 13.28 X1000 (1.4-6.5); PLT 197 X1000 (130-400); RBC 3.57 XMIL (4.2-5.4); RDW 14.1 % (11.5-14.5); WBC 16.21 X1000 (4.8-10.8)
[2019-03-24] MEDS: SODIUM CHLORIDE 0.9% INJ SCH (10:40)
[2019-03-24] MEDS: PROTONIX IV SCH (10:40)
[2019-03-24] MEDS: XANAX PO SCH ×3 (10:41→22:00)
[2019-03-24] MEDS: HYGROTON PO SCH ×2 (10:41→10:48)
[2019-03-24] MEDS: BYSTOLIC PO SCH (10:41)
[2019-03-24] MEDS ORDERED: LASIX IV ONE (14:22)
--- NOTE | 2019-03-24 14:43 | PROGRESS NOTE ---
DATE: 03/24/2019 SUBJECTIVE: No acute events overnight. The patient received 2 units of blood yesterday and responded well with hemoglobin and hematocrit of 10.3 and 30.8 today. Renal function is stable at 0.9. She had a repeat CT scan today which shows stability of her left retroperitoneal bleed. She feels that her pain has continued to improve. Vital signs are stable. Temperature 98.6, heart rate 91, blood pressure 132/63. Patient did have an episode of hypertension last night. Blood pressure were as high as the 200s. Uncertain what led to this, has improved this morning. OBJECTIVE: General: No acute distress. Resting comfortably in bed. Alert and oriented x3. Respiratory: Good respiratory effort without audible wheezing or rales. Abdomen: Soft, nontender, nondistended. No palpable masses or hepatosplenomegaly. : No suprapubic tenderness. No CVA tenderness. Urethral catheter in place draining clear, yellow urine. SKIN: No obvious skin lesions or bruising. LABS: White blood cell count 16.2, hemoglobin 10.3, hematocrit 30.8, platelets 197,000, sodium 136, potassium 3.5, chloride 99, bicarb 25, BUN 17, creatinine 0.9, glucose 147. Urine culture is negative. ASSESSMENT/PLAN: Ms. Ortega is a 74-year-old who presented to the emergency room with left flank pain. Had a CT scan at that time which showed a large retroperitoneal bleed. She was admitted to the ICU for observation and serial hematocrits. She had repeat imaging yesterday which showed stability of this area. The patient had a PICC line yesterday and overall states she is feeling better. She received 2 units of packed red blood cells. She says she has been able to move the lower extremities without pain, and subsequently feels like she is improving. Creatinine 0.9, hemoglobin and hematocrit is 10 and 30 today after blood transfusion yesterday. The patient continues to improve. She is being transferred to the floor, continue on telemetry, continue indwelling catheter today, maybe able to discharge catheter tomorrow. We will continue to monitor from urologic standpoint. Please call for any concerns. cc: MD DARSHANA Gonzales
[2019-03-24] MEDS: ALBUTEROL NEB INH PRN ×2 (15:16→23:06)
[2019-03-24] MEDS: LEVAQUIN 500 MG/D5W 500 MG/100 ML IVPB IV SCH (18:26)
--- NOTE | 2019-03-24 21:23 | PROGRESS NOTE ---
DATE: 03/24/2019 SUBJECTIVE: This morning, Ms. Ortega referred to be having some issues breathing. She thinks she is wheezing. OBJECTIVE: Vital signs: Blood pressure is 135/72, pulse of 87, respirations 24, temperature is 98.6 degrees. General: Ms. Ortega is a 74-year-old, elderly female. She is in bed. She is not in any cardiopulmonary distress. HEENT: Mucosa was pink and moist, anicteric, acyanotic. Neck: Supple. Chest: Air entry is bilaterally reduced. There are crackles in the posterior lung pardo. There is also wheezing bilateral posteriorly. Cardiovascular: Regular rate and rhythm. No murmurs, no rubs, no gallops. Gastrointestinal: Abdomen is soft, minimally tender on the left flank. central nervous system: Awake, alert, and oriented. There is no focal neurological deficit. LABORATORY DATA: WBC is up to 16.21, hemoglobin is 10.3, platelet count 197,000. Chemistry was also reviewed, completely within normal range. Phosphorus is 2.6. So far, blood cultures and urine culture have been negative. CURRENT MEDICATIONS: Have all been reviewed. No changes. ASSESSMENT/PLAN: 1. Spontaneous large subcapsular hematoma of the left kidney with extension to the perinephric region of unclear etiology. Urology is on board. A repeat CT scan yesterday, shows stability of the hematoma without any further progression. 2. Upper gastrointestinal bleed. The patient is status post EGD. Findings included distal esophageal reflux esophagitis. The patient is currently on PPI. 3. Anemia of acute blood loss. Patient is status post 2 PRBC transfusions. Hemoglobin and hematocrit has improved. 4. Hypertension. Controlled. 5. Recently treated for respiratory tract infection. 6. Remote history of breast cancer. 7. Bronchospasm with CT scan showing bilateral fluid effusions. I think this is due to pulmonary edema from over hydration. We will give Ms. Ortega Lasix today and re- evaluate her for tomorrow with a chest x-ray. We are also going to continue to monitor and follow up with further recommendations from Urology. cc: Tung Fischer MD [facility]
[2019-03-24] MEDS: ZOCOR PO SCH (22:00)
[2019-03-24] MEDS: AVAPRO PO SCH (22:00)
[2019-03-25 07:37] LABS: HEMOGLOBIN 10.4 g/dL (12.0-16.0); MCH 29.6 PG (27-31); MCHC 33.5 g/dL (33-37); MCV 88.3 FL (81-99); MPV 8.9 FL (7.4-10.4); RBC 3.51 XMIL (4.2-5.4); RDW 14.3 % (11.5-14.5); WBC 14.4 X1000 (4.8-10.8)
--- NOTE | 2019-03-25 07:49 | GASTROENTEROLOGY PROGRESS NOTE ---
DATE: 03/24/2019 SUBJECTIVE: Patient reports problems respiratory villegas. She is having some productive cough. Otherwise, no real GI issues reported. She has tolerated a small amount of her diet. Patient had an EGD on 03/23/2019 that showed reflux esophagitis. Otherwise, normal stomach and normal duodenum. Patient has received 2 units of packed red blood cells since admission. Her hemoglobin and hematocrit have improved today to 10.3 and 30.8. OBJECTIVE: Vital Signs: Temperature 98.6 degrees, pulse 87, respirations 24, blood pressure 135/72. General: Patient is awake and alert, no acute distress. LABORATORY: Hematology: WBC 16.21, hemoglobin 10.3, hematocrit 30.8, MCV 86.3, platelets 197. Coagulation: Pro time 14.4, INR 1.11. Chemistry: Sodium 136, potassium 3.5, chloride 99, CO2 25. BUN 17, creatinine 0.9, glucose 147, calcium 8.4, phosphorus 2.6. ASSESSMENT AND PLAN: 1. Large subcapsular hematoma of the left kidney. Urology is following. 2. Upper gastrointestinal bleed. Patient had esophagogastroduodenoscopy that showed esophagitis with continued proton pump inhibitor and follow anti-reflux measures. 3. Recent upper respiratory infection. Patient has had productive cough. Continue current medications. 4. Anemia has improved after packed red blood cells. Will continue to follow. Further plans to be made according to her progress. I have discussed this case with Dr. Dixon. Dictated by JARED Zayas for Tha Dixon MD cc: JARED Magaña MD
[2019-03-25 07:52] LABS: CALCIUM 8.7 mg/dL (8.8-10.2); POTASSIUM 3.2 mmol/L (3.5-5.1)
[2019-03-25] MEDS: ALBUTEROL NEB INH PRN ×3 (08:05→19:34)
[2019-03-25] MEDS: PROTONIX IV SCH (09:44)
[2019-03-25] MEDS: LASIX IV SCH (09:44)
[2019-03-25] MEDS: XANAX PO SCH ×3 (09:44→21:56)
[2019-03-25] MEDS: SODIUM CHLORIDE 0.9% INJ SCH (09:44)
[2019-03-25] MEDS: HYGROTON PO SCH (09:45)
[2019-03-25] MEDS: BYSTOLIC PO SCH (09:45)
--- NOTE | 2019-03-25 14:15 | Diag Imaging Result Doc PS360 ---
EXAM: CHEST-2 VIEWS 03/25/2019 HISTORY: hypoxia TECHNIQUE: AP and lateral chest COMMENT: There are bilateral pleural effusions more so on the left than the right. There is some atelectasis in both lung bases. There is a PICC line on the right with its tip just above the right atrium. Compared to 03/21/2019 the lungs are better expanded and there is less lingular opacity. IMPRESSION: Bibasilar atelectasis. Pleural effusions. Electronically signed by Shayne Mckeon 03/25/2019 2:13 PM
--- NOTE | 2019-03-25 16:01 | PROGRESS NOTE ---
DATE: 03/25/2019 SUBJECTIVE: No acute events overnight. The patient had some shortness of breath yesterday and had breathing treatments as well as Lasix. The patient was able to have a large amount of fluid drained through the catheter yesterday with 3 L recorded. She denies any flank or abdominal pain. She states that she has had a productive cough and has coughed up a large amount of mucus. She feels like it may be a bout of bronchitis. She was initially treated for this prior to presenting to the hospital. She has had minimal p.o. intake, but denies any nausea or vomiting this morning. OBJECTIVE: Vital Signs: Temperature 98.7 degrees, heart rate 87, blood pressure 123/75, oxygen saturation 99% on room air. General: No acute distress. Resting comfortably in bed. Alert and oriented x3. Respiratory: Slight wheezing, most prominent at the bases. Abdomen: Soft, nontender, nondistended. No abdominal bruising. : No suprapubic tenderness. No CVA tenderness. Urethral catheter in place draining clear yellow urine. Skin: No obvious skin lesions or rashes. LABS: White blood cell count 14.4, hemoglobin 10.4, hematocrit 31, platelets 220,000. Sodium 134, potassium 3.2, chloride 93, bicarb 28, BUN 19, creatinine 1.0, glucose 135. PLAN: Ms. Ortega is a 74-year-old with the left retroperitoneal hematoma. The patient was monitored in ICU with serial hematocrits, received 2 units of packed red blood cells and her hemoglobin and hematocrit remained stable. She was discharged to the floor yesterday and from a urologic standpoint seems to be doing well. She made good urinary output with over 3 L recorded. She denies any flank or abdominal pain today and denies taking medication for pain in over 24 hours now. Creatinine is 1.0 today from 0.9 yesterday. The patient received Lasix and her potassium has decreased to 3.2. White blood cell count is also down trended to 14.4. Overall seems like she is doing well. We will continue with indwelling catheter. She continues with Lasix. The patient would like to keep it in until at least tomorrow. We plan to remove her catheter in the morning. Continue pain control as necessary. Clinically, patient seems to be improving and approaching discharge. We will continue to monitor from a urologic standpoint. Please call with questions or concerns. cc: Husam Bolanos MD [facility]
[2019-03-25] MEDS: LEVAQUIN 500 MG/D5W 500 MG/100 ML IVPB IV SCH (17:06)
[2019-03-25] MEDS: AVAPRO PO SCH (21:47)
[2019-03-25] MEDS: ZOCOR PO SCH (21:47)
[2019-03-25] MEDS: DILAUDID IV PRN (21:56)
--- NOTE | 2019-03-26 05:38 | PROGRESS NOTE ---
DATE: 03/25/2019 SUBJECTIVE: This morning, Ms. Ortega referred to be doing a lot better. According to her, she is breathing a whole lot better than before. She still remains with some wheezing. OBJECTIVE: Vital signs: Blood pressure is 143/61, pulse of 89, respiration is 18, temperature 97.9 degrees. Patient is saturating 95% on nasal cannula. General: Ms. Ortega is a 74-year-old, elderly, female. She is in bed. No distress. HEENT: Mucosa is pink and moist. Anicteric. Acyanotic. Neck: Supple. Chest: Air entry is bilaterally reduced. There is still some distant wheezing bilaterally and some crackles. Cardiovascular: Regular rate and rhythm. No murmurs, no rubs, no gallops. Gastrointestinal: Abdomen is soft, nontender. Bowel sounds present. Extremities: No pedal edema. CASHIER WRAPPER: Patient is awake, alert, and oriented. There is no focal neurological deficit. The patient's I's and O's, urine output was 3050. She is currently still positive at 1422. Blood count has significantly improved. LABORATORY DATA: WBC is 14.40, hemoglobin is 10.4, platelet count of 220,000. Chemistry is also reviewed, for the most part unremarkable. ASSESSMENT: 1. Spontaneous large subcapsular hematoma of the left kidney with extension to the perinephric region of unclear etiology. Urology is on board. 2. Upper gastrointestinal bleed. Patient is status post EGD with findings consisting of esophageal reflux esophagitis. Patient is currently on proton pump inhibitor. 3. Anemia of acute blood loss (both upper GI and Surgery). The patient is status post 2 packed red blood cells transfusion. H H has improved. 4. Hypertension. Controlled. 5. Acute bronchospasm, most likely due to pulmonary edema. However, a superimposed infectious etiology cannot be completely ruled out. Ms. Ortega is on Levaquin. She seems to be doing well. WBC seems to be trending down. 6. Recently treated upper respiratory tract infection noted. For today, we are going to continue with the antimicrobial therapy and nebulization. We will get PT to evaluate her, get her also to be up and sitting in the chair. As I said, the repeat chest x-ray seems to show better expanded lungs today. cc: Tung Fischer MD [facility]
--- NOTE | 2019-03-26 07:25 | GASTROENTEROLOGY PROGRESS NOTE ---
DATE: 03/25/2019 SUBJECTIVE: The patient is awake and alert. She is feeling better today. OBJECTIVE: Vital Signs: Temperature 98.4 degrees, pulse 88, respirations 17, blood pressure 130/62. General: The patient is awake and alert, in no acute distress. LABORATORY DATA: Hematology: WBC 14.40, hemoglobin 10.4, hematocrit 31.0. Chemistry: Sodium 134, potassium 3.2, chloride 93, CO2 of 28, BUN 19, creatinine 1.0, glucose 135, calcium 8.7. ASSESSMENT AND PLAN: 1. Spontaneous subcapsular hematoma of the left kidney. Urology is following. 2. Upper gastrointestinal bleeding with esophagogastroduodenoscopy showing esophagitis. Continue proton pump inhibitor. 3. Anemia. The patient has receive packed red blood cells. Hemoglobin and hematocrit have been stable over the last several days. 4. Continue proton pump inhibitor. Continue to monitor for any further active bleeding. Follow antireflux measures. We will continue to follow, and further plans will be made according to her progress. I have discussed this case with Dr. Dixon. Dictated by JARED Zayas for Tha Dixon MD cc: JARED Magaña MD
[2019-03-26] MEDS: ALBUTEROL NEB INH PRN (08:05)
[2019-03-26 08:17] LABS: HEMATOCRIT 31.3 % (37.0-47.0); HEMOGLOBIN 10.3 g/dL (12.0-16.0); MCH 29.4 PG (27-31); MCHC 32.9 g/dL (33-37); MCV 89.4 FL (81-99); MPV 9.2 FL (7.4-10.4); RBC 3.5 XMIL (4.2-5.4); WBC 11.31 X1000 (4.8-10.8)
[2019-03-26 08:25] LABS: AGAP 12; ALBUMIN 2.6 g/dL (3.5-5.0); BUN 18 mg/dL (8-22); CHLORIDE 92 mmol/L (98-107); COSMO 277; CREATININE 0.8 mg/dL (0.5-0.9); ESTIMATED GFR > 60; GLUCOSE 149 mg/dL (70-104); PHOSPHORUS 2.6 mg/dL (2.7-4.5); POTASSIUM 3.1 mmol/L (3.5-5.1); SODIUM 136 mmol/L (136-145); TCO2 32 mmol/L (25-35)
--- NOTE | 2019-03-26 09:39 | PROGRESS NOTE ---
DATE: 03/26/2019 SUBJECTIVE: No acute events overnight. The patient states she has been feeling better. She denies any flank pain. She feels like her breathing has been better after several breathing treatments. She denies any nausea or vomiting, and had good p.o. intake yesterday. She remains afebrile. OBJECTIVE: Vital Signs: Temperature 98.3 degrees, heart rate 85, blood pressure 162/74, oxygen saturation 97% on room air. General: No acute distress. Resting comfortably in bed. Alert and oriented x3. Respiratory: Good respiratory effort without audible wheezing or rales. The patient is on 2 L nasal cannula. No increased work of breathing. Cardiovascular: Regular rate and rhythm. Abdomen: Soft, nontender, nondistended. : No suprapubic tenderness. No CVA tenderness. Skin: No obvious skin lesions or rashes. LABS: White blood cell count 11.3, hemoglobin 10.3, hematocrit 31.3, platelets 251,000. ASSESSMENT AND PLAN: Ms. Ortega is a 74-year-old who presented to the emergency room and was found to have a left retroperitoneal hematoma. The patient clinically seems to be stable. Hematocrits remained normal. She was having some wheezing on Wednesday, which seems to have improved over the past 24 to 48 hours. She is able to tolerate p.o. intake. Her catheter was removed this morning. She still has not urinated. It was only removed approximately 1 hour ago. We will have to follow up her urine output to be sure that she is able to empty her bladder adequately. The patient is having minimal pain at this time. She is tolerating a diet. White blood cell count continues to trend downward. It is uncertain this is related to bronchitis versus pneumonia like picture. She had a chest x-ray yesterday which showed evidence of bilateral pleural effusions, likely would keep her on antibiotics at time of discharge to decrease her risk of infection to the retroperitoneal hematoma for 1 week. Encouraged her to be ambulatory to the bedside chair. Encouraged to take p.o. intake as tolerated. We will continue to monitor from a urologic standpoint. Please call with questions or concerns. cc: MD DARSHANA Gonzales
[2019-03-26] MEDS: SODIUM CHLORIDE 0.9% INJ SCH (10:32)
[2019-03-26] MEDS: PROTONIX IV SCH (10:32)
[2019-03-26] MEDS: LASIX IV SCH (10:32)
[2019-03-26] MEDS: HYGROTON PO SCH (10:32)
[2019-03-26] MEDS: BYSTOLIC PO SCH (10:33)
[2019-03-26] MEDS: XANAX PO SCH ×2 (10:33→14:14)
[2019-03-26 16:41] VITALS: BP 135/63
--- NOTE | 2019-03-26 17:46 | GASTROENTEROLOGY PROGRESS NOTE ---
DATE: 03/26/2019 SUBJECTIVE: Ms. Ortega was sitting up in the chair. She has not had any new complaints. She is eating and tolerating a diet well. Has not had any hematemesis or coffee-ground emesis anymore. OBJECTIVE: Vitals: Temperature is 98.3 degrees, pulse 85 per minute, breathing 19, blood pressure 162/74. Abdomen: Is full, soft, nontender. Bowel sounds are audible. No pedal edema noted. LABORATORIES: Reviewed which showed WBC down to 11.3, hemoglobin is stable 10.3 and hematocrit 31.3. IMPRESSION: Acute gastrointestinal bleed most likely from Katelyn-Reza tear and esophagitis which has ceased now. She does not have any signs of active bleeding now. Hemoglobin and hematocrit are stable now. No new suggestions. I would recommend to continue proton pump inhibitor that was started. Continue one Prilosec 40 mg every day and she will be followed up at the office after discharge. At this point, no new suggestions. I would be available if needed. cc: Tha Dixon MD
[2019-03-26] MEDS: LEVAQUIN 500 MG/D5W 500 MG/100 ML IVPB IV SCH (19:02)
--- NOTE | 2019-03-27 08:27 | DISCHARGE SUMMARY ---
ADMISSION DATE: 03/21/2019 DISCHARGE DATE: 03/26/2019 DISPOSITION: Home. FOLLOW-UP: 1. Dr. Lindsey. 2. Dr. Dixon. 3. Dr. Bolanos. CONSULTATION DURING THIS ADMISSION: 1. Urology was consulted. Patient was seen by Dr. Bolanos. 2. GI was consulted. Patient was seen by Dr. Dixon. INVASIVE PROCEDURES DONE DURING THIS ADMISSION: EGD was done which showed reflux esophagitis in the distal esophagus. Otherwise, the upper GI was unremarkable. MICROBIOLOGY: Blood cultures: No growth. Urine culture: No growth. ADMISSION DIAGNOSES: 1. Upper gastrointestinal bleed. 2. Left subcapsular hematoma. 3. Sepsis. 4. Leukocytosis. DIAGNOSES AT THE TIME OF DISCHARGE: 1. Spontaneous large subcapsular hematoma of the left kidney with extension to the perinephric region of unclear etiology. Urology was on board. The patient had repeated CT scans in the hospital. It shows stability. She will follow up with Urology, and there is a plan to have a CT scan repeated again in about 6 weeks. 2. Upper gastrointestinal bleed. The patient underwent esophagogastroduodenoscopy. Findings show reflux esophagitis. The patient was placed on proton pump inhibitor. 3. Anemia of acute blood loss. Patient is status post 2 packed red blood cell transfusions. 4. Acute hypoxemic respiratory failure with bronchospasm during the hospital course due to pulmonary edema with suspected superimposed infectious etiology. The patient was placed on antibiotics and diuretic therapy. She did improve. 5. Obesity with body mass index of 31.0. 6. Hypertension. DISCHARGE MEDICATIONS: 1. Alprazolam. 2. Simvastatin 40 mg p.o. daily. 3. Bystolic 10 mg p.o. daily. 4. Chlorthalidone 25 mg p.o. daily. 5. Irbesartan 300 p.o. daily. 6. Levofloxacin 500 p.o. daily. 7. Pantoprazole 40 mg p.o. daily. 8. Lactobacillus 1 tablet p.o. daily. 9. [place] 5 one tablet p.o. q. 6 hours p.r.n. PRESENTING COMPLAINT: Nausea and vomiting for about 2 days. HISTORY OF PRESENTING COMPLAINT: Ms. Ortega is a 74-year-old female, who is known to have hypertension, dyslipidemia, was recently treated for upper respiratory tract infection. She came to the emergency department because of acute onset of abdominal pain, nausea and vomiting. She was evaluated, including a CAT scan which showed a large subcapsular hematoma of the left kidney with extension to the perinephric region. She was subsequently admitted to the ICU for critical care management. HOSPITAL COURSE: Ms. Ortega did improve during the hospital course. She was started on IV fluids, antibiotics. Urology was initially consulted. Patient was seen by Dr. Bolanos who recommended conservative management. GI was also consulted because of GI bleed. The patient underwent EGD; findings in the chart. During the hospital course, Ms. Ortega's hemoglobin dropped from 10.4 to 7.7, so she was given 2 PRBC transfusions, and subsequently her blood count improved and today is 10.3. Ms. Ortega also had elevated white cell count. She was just recently treated for respiratory tract infection and, because she was having some respiratory symptoms, we thought it was reasonable to treat her for sepsis syndrome. White cell count continues to decline at the time she was discharged. During the hospital course, Ms. Ortega had some bronchospasms and shortness of breath. X-rays did reveal pulmonary edema with some pleural effusions. She was given diuretic therapy and antibiotics and she did improve. Today she has been evaluated for possible home oxygen, but she does not qualify. She is actually currently saturating about 95% on room air. We think Ms. Ortega is clinically stable to be discharged. She is going to follow up with Dr. Bolanos, and a repeat CAT scan will be done at a later date as per Dr. Bolanos. The patient will also follow up with Dr. Dixon. All the discharge instructions have been discussed with her and she voiced understanding. TIME SPENT FOR DISCHARGE: 35 minutes. cc: MD Husam Payne MD Khurshid Yousuf, MD [facility] L. Putman
== END 2019-03-26 18:33 | disposition home or self-care (01) | DRG 871 ==
LOC: P.ED 18:48 → SUATTDRO 18:49 → ICU 23:16 → 4N 03-24 06:53
PROVIDERS: ATTEND Internal Medicine